=== PATIENT | male | born 1995 | race Caucasian/White ===

== ENCOUNTER 2020-05-25 12:27 | Emergency (ER) | payer SELFPAY ==
[~2020-05-25] VITALS: Ht 180.3 cm; Wt 72.7 kg
[2020-05-25] MEDS ORDERED: LIDOcaine 1% W/epiNEPHrine 1:200,000 10ml vial IJ ONE (12:35)
[2020-05-25] MEDS ORDERED: AMOX-422 PO (13:13)
[2020-05-25] MEDS ORDERED: amox tr/potassium clavulanate 875/125mg TAB PO ONE (13:15)
[2020-05-25] MEDS ORDERED: acetaminophen 325mg tablet PO ONE (13:25)
[2020-05-25 13:43] VITALS: BP 129/77
== END 2020-05-25 13:47 ==
LOC: ER 12:28
DX: S51.812A Laceration without foreign body of left forearm, initial encounter (principal); S41.152A Open bite of left upper arm, initial encounter; M79.622 Pain in left upper arm; R10.9 Unspecified abdominal pain; Z79.899 Other long term (current) drug therapy; W54.0XXA Bitten by dog, initial encounter; Y93.89 Activity, other specified; Y92.89 Other specified places as the place of occurrence of the external cause; Y99.8 Other external cause status
CPT/HCPCS: 29105; 73070; 99283